=== PATIENT | male | born 1940 | race Caucasian/White ===

== ENCOUNTER → 2016-05-20 | Outpatient (CLI) | payer OTHER | LOC: BHFA 13:45 | PROVIDERS: ATTEND Internal Medicine Cardiovascular Disease | DX: R07.9 Chest pain, unspecified (principal); E78.5 Hyperlipidemia, unspecified; Z95.0 Presence of cardiac pacemaker ==

== ENCOUNTER → 2016-05-26 | Outpatient (CLI) | payer OTHER | LOC: BHFA 09:00 | PROVIDERS: ATTEND Internal Medicine Cardiovascular Disease | DX: R07.9 Chest pain, unspecified (principal) | CPT/HCPCS: 78452; 93017; A9500; J2785 ==

== ENCOUNTER → 2016-10-24 | Outpatient (CLI) | payer OTHER | LOC: FIMAGING 11:30 | PROVIDERS: ATTEND Internal Medicine Cardiovascular Disease | DX: T82.110A Breakdown (mechanical) of cardiac electrode, initial encounter (principal) ==

== ENCOUNTER 2016-12-04 08:55 | Observation (INO) | payer OTHER, BC ==
[2016-12-04] MEDS ORDERED: BACITRACIN IRRIGATION/NS 50,000 UNITS/1,000 ML BTL IRR ONE (08:57)
[2016-12-04] MEDS ORDERED: ceFAZolin 2 GM/DEXTROSE 100 ML IV ONE (08:57)
[2016-12-04] MEDS ORDERED: DIAZEPAM 5 MG TAB PO ONE (08:57)
[2016-12-04] MEDS ORDERED: diphenhydrAMINE 25 MG CAP PO ONE (08:57)
[2016-12-04] MEDS ORDERED: NS 1,000 ML IV ONE (08:57)
--- NOTE | 2016-12-04 09:23 | CPEKG ---
Heart Rate: 77 RR Interval: 779 P-R Interval: 172 QRSD Interval: 132 QT Interval: 424 QTC Interval: 480 P [place]: 102 QRS [place]: 238 T Wave [place]: 88 EKG Severity - ABNORMAL ECG - EKG Impression: A-V DUAL-PACED RHYTHM Electronically Signed By: Les Hendricks 05-Dec-2016 07:27:18
[2016-12-04 09:37] LABS: % IMMATURE GRANULYOCYTES 0.4 % (0.0-1.1); ABSOLUTE IMMATURE GRANULOCYTES 0.02 10^3/uL (0.00-0.10); ADD DIFF? NO; ADD MORPH? NO; ADD SCAN? NO; ATYPICAL LYMPHOCYTE FLAG 20 (0-99); FRAGMENT RBC FLAG 0 (0-99); HEMATOCRIT 39.4 % (40.0-51.0); LEFT SHIFT FLG 0 (0-99); LIPEMIA HEMOLYSIS FLAG 90 (0-99); MEAN CELL HEMOGLOBIN 34.1 pg (27.9-34.1); MEAN CELL HEMOGLOBIN CONCENTR. 35.5 g/dL (32.4-36.7); MEAN CELL VOLUME 95.9 fL (81.5-99.8); MEAN PLATELET VOLUME 10.4 fL (8.7-11.7); PLATELET CLUMPS FLAG 0 (0-99); PLATELET COUNT 136 10^3/uL (150-400); RED BLOOD CELL COUNT 4.11 10^6/uL (4.40-6.38); RED CELL DISTRIBUTION WIDTH 13.4 % (11.5-15.2)
[2016-12-04 09:46] LABS: INR 0.99 (0.83-1.16)
[2016-12-04 09:51] LABS: ANION GAP 14 mEq/L (8-16); CALCIUM 9.2 mg/dL (8.5-10.4); CARBON DIOXIDE 25 mEq/l (22-31); CHLORIDE 102 mEq/L (97-110); CREATININE 0.8 mg/dL (0.7-1.3); GLOMERULAR FILTRATION RATE > 60; GLUCOSE 94 mg/dL (70-100); POTASSIUM 4.4 mEq/L (3.5-5.2); SODIUM 141 mEq/L (134-144)
[2016-12-04] MEDS ORDERED: fentaNYL 100 MCG/2 ML INJ ONE ×2 (10:29→11:43)
[2016-12-04] MEDS ORDERED: MIDAZOLAM 2 MG/2 ML VIAL ONE ×3 (10:29→11:43)
[2016-12-04] MEDS ORDERED: LIDOCAINE 1% 300 MG/30 ML SDV ONE ×2 (10:29→11:55)
[2016-12-04] MEDS ORDERED: LIDO/EPI 1% **for epidural** 30 ML SDV ONE (10:30)
[2016-12-04] MEDS ORDERED: BUPIVACAINE 0.5% 30 ML SDV ONE (10:30)
[2016-12-04] MEDS ORDERED: IOPAMIDOL (ISOVUE-300) 150 ML BTL ONE (10:38)
[2016-12-04] MEDS ORDERED: ONDANSETRON DISINTEGRATING 4 MG TAB PO PRN (13:09)
[2016-12-04] MEDS ORDERED: ONDANSETRON 4 MG/2 ML VIAL IVP PRN (13:09)
[2016-12-04] MEDS ORDERED: ACETAMINOPHEN 325 MG TAB PO PRN (13:09)
[2016-12-04] MEDS ORDERED: NS 1,000 ML IV SCH (13:15)
--- NOTE | 2016-12-04 13:48 | CPEKG ---
Heart Rate: 63 RR Interval: 952 P-R Interval: 204 QRSD Interval: 142 QT Interval: 488 QTC Interval: 500 P [place]: 69 QRS [place]: 268 T Wave [place]: 86 EKG Severity - ABNORMAL ECG - EKG Impression: ATRIAL-VENTRICULAR DUAL-PACED RHYTHM Electronically Signed By: Les Hendricks 05-Dec-2016 07:26:57
[2016-12-04] MEDS ORDERED: clonazePAM 1 MG TAB PO SCH (21:00)
--- NOTE | 2016-12-04 22:55 | CPIP ---
[f rep st] INVASIVE CARDIAC PROCEDURE DATE OF PROCEDURE: 12/04/2016 PROCEDURE PERFORMED: 1. Placement of a new right ventricular lead. The new lead is a Biotronik Mir S53, serial #[id number]. 2. Explantation of a Biotronik pulse generator which was an Evia DR-T, model #014734, serial #[id number]. 3. Capping of a Setrox S53, model #601918, serial #[id number]. Out of service 12/04/2016. 4. Placement of a temporary pacemaker wire from a right femoral vein approach. 5. Placement of a new Etrinsa 8 DRT, model #178357, serial #[id number]. 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 This procedure was performed 05/29/2011. Joel pearce, the patient's RV lead which was placed at that time, was noted to be having increasing threshol ds and when an x-ray was performed, it appeared that there was an insulation fracture at the hinge p oint where the lead crossed the tricuspid valve. Because the patient is truly pacemaker dependent a nd would with failure of the device with asystole, we discussed these issues with the patient an d decided to proceed with replacement of his pacemaker system with a new RV lead and new pulse gener ator to try to avoid having to re-enter the left-sided pocket. The original indication is third-degree heart block. The current indication is a failing RV lead in a patient who is pacemaker dependent. PROCEDURE IN DETAIL: After informed consent was obtained, n.p.o. status was confirmed. The region of the left clavicular fossa and right femoral area was cleaned, prepped and draped in sterile fashi on. Initially, a 6-Kazakh sheath was placed in the right common femoral vein with single anterior p uncture of the vessel. The patient then underwent placement of a 6-Kazakh sheath. A balloon tipped and flow-directed pacemaker wire was then advanced under direct fluoroscopic guidance. I manipulat ed with care into the RV apex, and was noted to pace easily at max output. That device was set at d emand in demand mode and VOO mode at a backup rate of 40. We then redraped the patient including th e left shoulder and subclavicular area. Sterile gowns and drapes and gloves were exchanged by jennifer perez and my planning assistant, Michael Del Rosario. Approximately 30 cc of 1% lidocaine was utilized for local anesthesia. A #10 blade was used to steve ply incise the skin. Electrocautery and local pressure were used for hemostasis. Sharp and blunt d issection were used to expose the previously placed Biotronik pulse generator with electrocardiogram device switched to unipolar, which was expected. When the device was removed from the pocket, we 1 st increased the rate of the temporary pacer wire, confirmed its position on fluoroscopy and confirm ed that it would overdrive pace when the device was removed. The device was removed from the pocket. The atrial and ventricular leads were checked with the mary gator clips, and the atrial lead threshold was found to be stable. That lead is a [employer], model #1882TC-46, serial #[id number]. The threshold was found to be 0.8 V at 0.44 milliseconds, s ensing P waves at 3.5 mV and a lead impedance of 331 ohms. The patient was then placed in Trendelenburg position. Again fluoroscopy confirmed that the tempora ry pacer wire was still working properly. An 18-gauge Cook needle was used to gain access in his le ft subclavian vein. After venography demonstrated adequate space for the lead to be placed, the prieto d was advanced through a long 7-Kazakh peel-away sheath and was the new lead was manipulated with ca re into the RV apex and screwed into place. It was tested and found to have a threshold of 0.8 at 0 .4 millisecond, sensing paced R-waves at 9.7 mV with a lead impedance with pacing at 624. The devic e was brought to the table. The atrial lead serial number was checked and placed at the upper pole lead housing with setscrew firmly applied. Procedure was repeated for the RV lead, after it was sut ured in place in 3 positions with the suture sleeve with 0 Ethibond. The pocket was thoroughly flus hed and checked for bleeders. The antibiotic soaked gauze was removed from the pocket. Hemostasis was documented. The pacemaker was care into the pocket and sutured in place with 0 silk. The subcutaneous layer and skin were then closed with a 3 layered approach with 2-0 Vicryl interru pted vertical mattress sutures followed by 3-0 Vicryl horizontal mattress sutures and a 4-0 Monocryl subcuticular repair. The patient tolerated the procedure well, and a sterile dressing was applied. We then turned our attention to the temporary pacer wire. The balloon was deflated, and the devic e was slowly removed under fluoroscopic guidance with care to avoid dislodging the newly placed RV l ead. The patient was taken to the recovery unit in good and stable condition where a stat postopera tive chest x-ray and EKG will be obtained to ensure no evidence of pneumothorax and to confirm the c urrent position of the new bipolar lead and device. I warned the patient prior to the procedure that given the number of leads in the superior vena cava and also in the left subclavian vein, the main risk for transvenous pacing at this point, would be the development of a left subclavian vein thrombosis or a superior vena caval thrombosis. I have ex plained the symptoms of both of those conditions the patient as well as to the patient's . The patient will be admitted overnight and should be able to be discharged in the morning, unless compli cations ensue. The patient's patches were left in appropriate position to achieve RV pacing in the event that the patient's ventricular lead dislodges overnight, and the patient will be kept on stric t telemetry until the time of his discharge. /[id number]/MODL
[2016-12-05 05:37] LABS: % IMMATURE GRANULYOCYTES 0.5 % (0.0-1.1); ABSOLUTE IMMATURE GRANULOCYTES 0.03 10^3/uL (0.00-0.10); ADD DIFF? NO; ADD MORPH? NO; ADD SCAN? NO; ATYPICAL LYMPHOCYTE FLAG 0 (0-99); FRAGMENT RBC FLAG 0 (0-99); HEMATOCRIT 38.1 % (40.0-51.0); HEMOGLOBIN 13.2 g/dL (13.7-17.5); LEFT SHIFT FLG 0 (0-99); LIPEMIA HEMOLYSIS FLAG 90 (0-99); MEAN CELL HEMOGLOBIN 33.6 pg (27.9-34.1); MEAN CELL HEMOGLOBIN CONCENTR. 34.6 g/dL (32.4-36.7); MEAN CELL VOLUME 96.9 fL (81.5-99.8); MEAN PLATELET VOLUME 10.5 fL (8.7-11.7); PLATELET CLUMPS FLAG 10 (0-99); PLATELET COUNT 113 10^3/uL (150-400); RED BLOOD CELL COUNT 3.93 10^6/uL (4.40-6.38); RED CELL DISTRIBUTION WIDTH 13.3 % (11.5-15.2)
[2016-12-05 05:52] LABS: ANION GAP 10 mEq/L (8-16); CALCIUM 8.7 mg/dL (8.5-10.4); CARBON DIOXIDE 24 mEq/l (22-31); CHLORIDE 105 mEq/L (97-110); CREATININE 0.8 mg/dL (0.7-1.3); GLOMERULAR FILTRATION RATE > 60; GLUCOSE 91 mg/dL (70-100); POTASSIUM 4.2 mEq/L (3.5-5.2); SODIUM 139 mEq/L (134-144)
--- NOTE | 2016-12-05 08:47 | CPEKG ---
Heart Rate: 62 RR Interval: 968 P-R Interval: 232 QRSD Interval: 136 QT Interval: 440 QTC Interval: 447 P [place]: 78 QRS [place]: 268 T Wave [place]: 86 EKG Severity - ABNORMAL ECG - EKG Impression: ATRIAL-VENTRICULAR DUAL-PACED COMPLEXES Electronically Signed By: Les Hendricks 08-Dec-2016 05:35:47
[2016-12-05 09:00] VITALS: BP 122/69; PULSE 81; RESP 12; TEMP 98.1; O2SAT 92
[2016-12-05] MEDS ORDERED: ROSUVASTATIN CALCIUM 40 MG TAB PO SCH (09:00)
--- NOTE | 2016-12-05 14:26 | GDS ---
[f rep st] DISCHARGE SUMMARY PRIMARY TRANSFER MACHINE OPERATOR: Chapin Stewart MD DISCHARGE DIAGNOSES: 1. Complete heart block, status post pacemaker placement in 2011 with possible ventricular lead fra cture, status post new ventricular lead and generator change. 2. Hyperlipidemia. HOSPITAL COURSE: For detailed H and P, please see prior dictation. Briefly, the patient is a 76-ye ar-old male with a history of complete heart block status post Biotronik pacemaker in 2011. He had a pacer interrogation recently which noted ventricular threshold of 1.8 V compared to 1.0 three renetta hs ago. Also, the impedance increased from 507 to 663. Ultimately, there was concern for ventricul ar lead fracture and therefore, the patient was taken to the [facility] for a ventricular lead replace ment and generator change on 12/04/2016, by Dr. Stewart. The procedure was uncomplicated. The morning, his device was working properly by pacer interrogation. His pocket is clean, intact, without any evidence of infection or hematoma. The chest x-ray prior to discharge was negative for pneumothorax. His EKG showed AV pacing. PHYSICAL EXAMINATION: GENERAL: Patient appears in no acute distress. VITAL SIGNS: Blood pressure 122/69, heart rate 81, oxygen saturation of 92% on room air, afebrile. LUNGS: Clear to auscultati on. No wheezes, rhonchi, or crackles auscultated. CARDIAC: Regular rate and rhythm without any mu rmurs, rubs, or gallops appreciated. CHEST WALL: His pacer site is clean, intact without any evide nce of infection or hematoma. DISCHARGE MEDICATIONS: His medications are unchanged. He will continue aspirin 81 mg daily, Cresto r 40 mg daily and Klonopin 1.5 mg at bedtime. PLAN: The patient is currently stable and ready for discharge home. He has been given pacer precau tions. He will follow up at [facility] on 12/11 at 8:30 for pacer interrogation and wound check. He will also follow up with Dr. Chapin Stewart on 01/09 at 10:45 a.m. Greater than 30 minutes was spent coordinating the patient's care today. /[id number]/MODL
== END 2016-12-05 10:51 | disposition home or self-care (01) ==
LOC: FCATH 08:55 → F2W 13:09
PROVIDERS: ADMIT Internal Medicine Cardiovascular Disease; ATTEND Internal Medicine Cardiovascular Disease
PROC: 0JH606Z Insertion of Pacemaker, Dual Chamber into Chest Subcutaneous Tissue and Fascia, Open Approach (ICD-10-PCS; principal; 2016-12-04)
PROC: 0JPT0PZ Removal of Cardiac Rhythm Related Device from Trunk Subcutaneous Tissue and Fascia, Open Approach (ICD-10-PCS; principal; 2016-12-04)
PROC: 02HK3JZ Insertion of Pacemaker Lead into Right Ventricle, Percutaneous Approach (ICD-10-PCS; principal; 2016-12-04)
DX: T82.110A Breakdown (mechanical) of cardiac electrode, initial encounter (principal); I44.2 Atrioventricular block, complete; G47.33 Obstructive sleep apnea (adult) (pediatric)
CPT/HCPCS: 33207; 33233; 71010; 71020; 93005; C1785; C1898; J0690; J2250; J3010; Q9967

== ENCOUNTER 2017-02-05 06:33 | Day surgery (SDC) | payer OTHER, BC ==
[2017-02-05] MEDS ORDERED: diphenhydrAMINE 25 MG CAP PO ONE (06:39)
[2017-02-05] MEDS ORDERED: DIAZEPAM 5 MG TAB PO ONE (06:39)
[2017-02-05] MEDS ORDERED: BACITRACIN IRRIGATION/NS 50,000 UNITS/1,000 ML BTL IRR ONE (06:39)
[2017-02-05] MEDS ORDERED: ceFAZolin 2 GM/DEXTROSE 100 ML IV ONE (06:39)
[2017-02-05] MEDS ORDERED: NS 1,000 ML IV ONE (06:39)
--- NOTE | 2017-02-05 06:55 | CPEKG ---
Heart Rate: 74 RR Interval: 811 P-R Interval: 196 QRSD Interval: 142 QT Interval: 436 QTC Interval: 484 P [place]: 79 QRS [place]: 264 T Wave [place]: 83 EKG Severity - ABNORMAL ECG - EKG Impression: A-V DUAL-PACED RHYTHM WITH SOME INHIBITION Electronically Signed By: Esperanza Cote 07-Feb-2017 06:50:59
[2017-02-05 07:07] LABS: % IMMATURE GRANULYOCYTES 0.7 % (0.0-1.1); ABSOLUTE IMMATURE GRANULOCYTES 0.03 10^3/uL (0.00-0.10); ADD DIFF? NO; ADD MORPH? NO; ADD SCAN? NO; ATYPICAL LYMPHOCYTE FLAG 50 (0-99); FRAGMENT RBC FLAG 0 (0-99); HEMATOCRIT 37.6 % (40.0-51.0); HEMOGLOBIN 13.6 g/dL (13.7-17.5); LEFT SHIFT FLG 0 (0-99); LIPEMIA HEMOLYSIS FLAG 90 (0-99); MEAN CELL HEMOGLOBIN 34.3 pg (27.9-34.1); MEAN CELL HEMOGLOBIN CONCENTR. 36.2 g/dL (32.4-36.7); MEAN CELL VOLUME 94.9 fL (81.5-99.8); MEAN PLATELET VOLUME 10.4 fL (8.7-11.7); PLATELET CLUMPS FLAG 0 (0-99); PLATELET COUNT 121 10^3/uL (150-400); RED BLOOD CELL COUNT 3.96 10^6/uL (4.40-6.38); RED CELL DISTRIBUTION WIDTH 13.6 % (11.5-15.2)
[2017-02-05 07:16] LABS: INR 1.04 (0.83-1.16); PROTIME(PATIENT) 13.5 SEC (12.0-15.0)
[2017-02-05 07:28] LABS: ANION GAP 9 mEq/L (8-16); CALCIUM 9.1 mg/dL (8.5-10.4); CARBON DIOXIDE 25 mEq/l (22-31); CHLORIDE 103 mEq/L (97-110); CREATININE 0.8 mg/dL (0.7-1.3); GLOMERULAR FILTRATION RATE > 60; GLUCOSE 97 mg/dL (70-100); POTASSIUM 4.3 mEq/L (3.5-5.2); SODIUM 137 mEq/L (134-144)
[2017-02-05] MEDS ORDERED: BUPIVACAINE 0.5% 30 ML SDV ONE (07:44)
[2017-02-05] MEDS ORDERED: MIDAZOLAM 2 MG/2 ML VIAL ONE (07:44)
[2017-02-05] MEDS ORDERED: fentaNYL 100 MCG/2 ML INJ ONE (07:44)
[2017-02-05] MEDS ORDERED: LIDOCAINE 1% 300 MG/30 ML SDV ONE (07:44)
[2017-02-05] MEDS ORDERED: LIDO/EPI 1% **for epidural** 10 ML SDV ONE (07:45)
--- NOTE | 2017-02-05 08:45 | PDHPUP ---
History & Physical Update H&P update statement: This history and physical update is based on an assessment of the patient which was completed after admission or registration (within 24 hours), but prior to the surgery/procedure. H&P update: H&P reviewed & patient examined, no change in patient's condition since H&P completed
--- NOTE | 2017-02-05 08:45 | PDPROPOC ---
Sedation Plan of Care Sedation Plan of Care: vital signs stable, mental status noted, patient educated of risks, benefits, alternatives, patient can tolerate sedation ASA Classification: ASA 3 Mallampati Score: Class 3 Mallampati Reference Image: Patient passed 3-3-2 rule?: No
--- NOTE | 2017-02-05 10:13 | CPEKG ---
Heart Rate: 64 RR Interval: 938 P-R Interval: 212 QRSD Interval: 148 QT Interval: 480 QTC Interval: 496 P [place]: 64 QRS [place]: 258 T Wave [place]: 80 EKG Severity - ABNORMAL ECG - EKG Impression: ATRIAL-VENTRICULAR DUAL-PACED RHYTHM Electronically Signed By: Sb Glasgow 08-Feb-2017 08:55:26
--- NOTE | 2017-02-05 11:56 | CPIP ---
[f rep st] INVASIVE CARDIAC PROCEDURE DATE OF PROCEDURE: 02/05/2017 PROCEDURE PERFORMED: Pacer pocket revision. COMPLICATIONS: None. INDICATION AND APPROPRIATE USE CRITERIA: The patient presented to the outpatient clinic with a compl aint of a lead migrating out toward his skin and causing pressure and pain in this area. On physical examination, it was noted the capped lead had migrated out anterior to the pacemaker and was anterio rly directed placing pressure on the subcutaneous structures beneath the skin just superior to the in cision line. It was clear that this would cause pressure necrosis of the skin and ultimately, the le ad would have dehisced through the skin and therefore, the patient is taken for a pacer pocket revisi on to tuck the capped lead behind the device and suture it into place so this does not happen again. PROCEDURE IN DETAIL: After informed consent was obtained, n.p.o. status was confirmed, the region of the left subclavicular fossa was cleaned, prepped and draped in sterile fashion. Appropriate time-o ut and IV antibiotics were performed and administered. Approximately 15 cc of 1% lidocaine were util ized for local anesthesia. A 10 blade was used to open the skin. Pressure and electrocautery were u sed to obtain hemostasis, with careful monitoring of the patient's heart rhythm and pulse given that he is pacer dependent. Ultimately, the device was explanted from the pocket using sharp and blunt di ssection. The pocket was thoroughly flushed and cleaned with antibiotic-containing solution. Hemost asis was documented. The capped lead was sutured into place with 0 Ethibond in the base of the pocke t with 2 separate sutures. The device was then replaced into the pocket and the skin was closed with a 3-layered 2-0 Vicryl, 3-0 Vicryl and 4-0 Monocryl subcuticular repair. Excellent wound edge apposi tion and hemostasis were documented. The patient will return to the post cath recovery unit in good and stable condition, where a stat postoperative EKG will be obtained. FINAL IMPRESSION: Successful pocket revision with replacement of the capped lead in the base of the pocket and sutured into place so that migration of the capped lead does not reoccur. /[id number]/MODL
== END 2017-02-05 12:32 | disposition home or self-care (01) ==
LOC: FCATH 06:33
PROVIDERS: ATTEND Internal Medicine Cardiovascular Disease
PROC: 0JWT0PZ Revision of Cardiac Rhythm Related Device in Trunk Subcutaneous Tissue and Fascia, Open Approach (ICD-10-PCS; principal; 2017-02-05)
DX: Z45.018 Encounter for adjustment and management of other part of cardiac pacemaker (principal); T82.120A Displacement of cardiac electrode, initial encounter; E78.5 Hyperlipidemia, unspecified; Z79.82 Long term (current) use of aspirin
CPT/HCPCS: J0690; J2250; J3010

== ENCOUNTER → 2017-08-12 | Outpatient (CLI) | payer OTHER, BC | LOC: BHFA 09:30 | PROVIDERS: ATTEND Internal Medicine Cardiovascular Disease | DX: I47.2 Ventricular tachycardia (principal); R42 Dizziness and giddiness | CPT/HCPCS: 78452; 93017; A9500; J2785 ==

== ENCOUNTER → 2017-08-24 | Outpatient (CLI) | payer OTHER, BC | LOC: SBRMNEURO 20:00 | PROVIDERS: ATTEND Psychiatry & Neurology Sleep Medicine | DX: G47.33 Obstructive sleep apnea (adult) (pediatric) (principal) ==